=== PATIENT | male | born 1970 | race Caucasian/White ===

== ENCOUNTER 2016-03-22 12:48 | Emergency (ER) | payer OTHER ==
[~2016-03-22] VITALS: Ht 188 cm; Wt 70.3 kg
--- NOTE | 2016-03-22 13:53 | ED CARDIAC/CP/PALPITATIONS ---
History of Present Illness General Chief Complaint: Neck/Upper Back Pain/Injury Stated Complaint: UPPER BACK AND LFT CP SINCE YESTERDAY AM Source: patient, old records Exam Limitations: no limitations Vital Signs & Intake/Output Vital Signs & Intake/Output Vital Signs Date Time Temp Pulse Resp B/P Pulse O2 O2 Flow FiO2 Ox Delivery Rate 03/22 1503 96.6 62 18 118/70 96 Room Air 03/22 1252 97.8 103 16 118/82 97 Room Air Allergies Coded Allergies: venom-honey bee (Severe, ANAPHYLAXIS 03/22/16) Reconcile Medications Cyclobenzaprine HCl 5 MG TABLET 1 TAB PO TIDPRN PRN PAIN Oxycodone HCl/Acetaminophen (Percocet 5-325 MG Tablet) 5 MG-325 MG TABLET 1 TAB PO TID PRN PAIN Triage Note: PT STATES HE IS HAVING PAIN LEFT RIBS INTO BACK PT STATES PAIN INCREASED WITH MOVEMENT. PT REPORTS HE COULDN'T GET OOB YESTERDAY MORNING. PT HAS NOT TAKEN ANYTHING FOR THE PAIN. Triage Nurses Notes Reviewed? yes Onset: Abrupt Duration: day(s): (2), constant Timing: recent history Quality/Severity: moderate, aching Location: shoulder, back Radiation: back Activities at Onset: AT WORK Modifying Factors: Improves With: rest. Worsens With: movement, palpation. Associated Symptoms: DENIES HPI: 45-year-old male with history of asthma active cigar smoker presents emergency room complaining of pain over the anterior chest that is radiating around into his left upper back for the past 2 days. 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 He denies any known injury or trauma however states the pain is worse with change in position palpation. He has not taken anything for his symptoms he denies any abdominal pain nausea vomiting or diarrhea. No palpitations dizziness or lightheadedness. Denies history of similar symptoms in the past. No hemoptysis the pain is not worse with inspiration. There are no other modifying factors or associated symptoms otherwise (CEZAR KWAN,MASOUD) Past History Travel History Traveled to [place] past 21 day No Medical History Any Pertinent Medical History? none Surgical History Surgical History: non-contributory Psychosocial History What is your primary language Thai Tobacco Use: Current Not Daily Daily Tobacco Use Amount/Type: =< 4 Cigarettes daily ETOH Use: occasional use Illicit Drug Use: denies illicit drug use Family History Hx Contributory? No (MASOUD HEARD) Review of Systems Review of Systems Constitutional: Reports: see HPI. All Other Systems: Reviewed and Negative Comments Review of systems: See HPI, All other systems negative. Constitutional, no chills no fever, no malaise HEENT: No visual changes no sore throat no congestion, Cardiovascular: chest pain , no palpitation , no orthopnea no ankle swelling Skin, no jaundice no rashes, no change in skin Respiratory: No dyspnea no cough no sputum no hemoptysis GI: No nausea no vomiting, : No dysuria Muscle skeletal: No joint pain, no back pain, no neck pain, Neurologic: No numbness no headache Psych: No stress Heme/endocrine: No bruising no bleeding Immunology: No lymphadenopathy (MASOUD HEARD) Physical Exam Physical Exam General Appearance: well developed/nourished, alert, awake Cardiovascular: regular rate/rhythm Comments: Well-developed well-nourished person in no acute distress HEENT: Normal EENT exam; PERRL, EOMI, HEAD is atraumatic. moist mucous membranes. Neck: Supple, no lymphadenopathy, normal range of motion Back: Nontender, no CVA tenderness. Full range of motion Cardiovascular: Regular rate and rhythms no murmurs rubs or gallops Respiratory: Chest tender to palpation over the left anterior chest wall, left axilla and left upper back.There were no bony deformities, no asymmetry. No respiratory distress. Patient speaking in full complete sentences. Breath sounds clear to auscultation bilaterally: NO W/R/R Abdomen: Soft, nontender nondistended Extremity: No edema, full range of motion of extremities, pain in the chest is reproducible with range of motion of the left shoulder normal and equal pulses bilaterally, 5 out of 5 strength noted to bilateral upper and lower extremities Neuro: Alert oriented x3, motor sensory normal, There were no obvious focal neurologic abnormalities. Skin: No appreciable rash on exposed skin, skin is warm and dry. There is no rash to the chest wall no vesicles no erythema Psych: Mood and affect is normal, memory and judgment is normal. Core Measures ACS in differential dx? Yes Severe Sepsis Present: No Septic Shock Present: No (MASOUD HEARD) Progress Differential Diagnosis: AMI, costochondritis, musculoskeletal pain, myocarditis, pericarditis, pneumonia, pneumothorax, pulmonary embolism, rib fracture, unstable angina Plan of Care: Orders Procedure Date/time Status TROPONIN LEVEL 03/22 135 Complete COMPREHENSIVE METABOLIC PANEL 03/22 1358 Complete CBC WITHOUT DIFFERENTIAL 03/22 1358 Complete EKG 03/22 135 Active Laboratory Tests 03/22/16 1400: Anion Gap 11, Estimated GFR > 60, BUN/Creatinine Ratio 13.0, Glucose 82, Calcium 9.7, Total Bilirubin 0.5, AST 16 L, ALT 22, Alkaline Phosphatase 70, Troponin I < 0.01, Total Protein 7.0, Albumin 4.2, Globulin 2.8, Albumin/Globulin Ratio 1.5 , CBC w Diff NO MAN DIFF REQ, RBC 5.93, MCV 87.9, MCH 30.1, RDW 14.0, MPV 8.0, Gran % 75.5 H, Lymphocytes % 16.8 L, Monocytes % 5.3, Eosinophils % 1.4, Basophils % 1.0, Absolute Granulocytes 11.3 H, Absolute Lymphocytes 2.5, Absolute Monocytes 0.8 H, Absolute Eosinophils 0.2, Absolute Basophils 0.1, PUBS MCHC 34.2 Patient medication with tramadol at his request labs ordered x-ray ordered Patient reports pain persists I discussed with the patient his x-ray findings CAT scan ordered. Percocet [address] REVIEWED WITH DR MARTINS- discussed with patient his CAT scan results need for supportive care. The patient reports his symptoms have improved with the Percocet I advised need for rest smoking cessation was discussed with the patient prescription for Percocet and Flexeril were provided. I discussed with the patient at length all of their results, need for close follow up with their primary care physician. This week. I answered all of their questions, they feel comfortable with the plan and follow-up care. I discussed the medications that they will receive with the patient. I gave them signs and symptoms that could indicate an adverse reaction. I have advised them to limit their activities until they can see how they respond to the medication. (CEZAR KWAN,MASOUD) Diagnostic Imaging: Viewed by Me: Radiology Read, CT Scan. Discussed w/RAD: Radiology Read, CT Scan. Radiology Impression: PATIENT: COTY PAUL PRESENT AGE: 45 PATIENT ACCOUNT NO: [id number] : 71 LOCATION: [facility] ORDERING PHYSICIAN: MASOUD KWAN SERVICE DATE: 03/22/16 EXAM TYPE: CAT - CT CHEST WO IV CONTRAST EXAMINATION: CT CHEST WITHOUT CONTRAST CLINICAL INFORMATION: Left rib pain. Question presence of pneumothorax or bulla on chest radiograph. COMPARISON: Radiographs of the chest/ribs from 03/22/2016 TECHNIQUE: Multidetector volumetric CT imaging of the chest was done. Axial MIP volume rendering provided. Sagittal and coronal reformatted images were obtained. DLP: 250.82 mGy-cm FINDINGS: LUNGS AND PLEURA: Trachea and central airways are widely patent and normal in caliber. Linear strand of mucus is seen in the lumen of the distal trachea and a small amount of mucus is present along the posterior wall of the right mainstem bronchus. There is centrilobular and paraseptal emphysema. Bullous emphysematous changes are severe at the lung apices and along the posterior aspect of the right lower lobe. No pneumothorax or pleural effusion. There are a few scattered linear and bandlike opacities of atelectasis and/or focal fibrosis within the right middle lobe, inferior lingula and lower lobes. MEDIASTINUM: Cardiac chambers, pulmonary arteries and thoracic aorta are normal in caliber. No pericardial effusion. The thyroid gland and esophagus are unremarkable. LYMPHATICS: No pathologic sized axillary, hilar or mediastinal lymph nodes. UPPER ABDOMEN: There is diffuse cortical atrophy of the right kidney. Otherwise, the examined upper abdomen is unremarkable. OSSEOUS STRUCTURES: Thoracic vertebra have normal density, height and alignment. Ribs are unremarkable. No evidence of an acute, displaced rib fracture. IMPRESSION: Pulmonary emphysema without pneumothorax. The bullous emphysematous changes are severe at the lung apices and along the posterior aspect of the right lower lobe. DICTATED BY: CARINA ELLISON MD DATE/TIME DICTATED:03/22/161558 [employer] DEAN:JUAN DATE/TIME TRANSCRIBED:03/22/161558 CONFIDENTIAL, DO NOT COPY WITHOUT APPROPRIATE AUTHORIZATION. <Electronically signed in Other Vendor System> SIGNED BY: CARINA ELLISON MD 03/22/16 1613, PATIENT: COTY PAUL PRESENT AGE: 45 PATIENT ACCOUNT NO: [id number] : 71 LOCATION: [facility] ORDERING PHYSICIAN: MASOUD KWAN SERVICE DATE: 03/22/16 EXAM TYPE: CAT - CT CHEST WO IV CONTRAST EXAMINATION : CT CHEST WITHOUT CONTRAST CLINICAL INFORMATION: Left rib pain. Question presence of pneumothorax or bulla on chest radiograph. COMPARISON: Radiographs of the chest/ribs from 03/22/2016 TECHNIQUE: Multidetector volumetric CT imaging of the chest was done. Axial MIP volume rendering provided. Sagittal and coronal reformatted images were obtained. DLP: 250.82 mGy-cm FINDINGS: LUNGS AND PLEURA: Trachea and central airways are widely patent and normal in caliber. Linear strand of mucus is seen in the lumen of the distal trachea and a small amount of mucus is present along the posterior wall of the right mainstem bronchus. There is centrilobular and paraseptal emphysema. Bullous emphysematous changes are severe at the lung apices and along the posterior aspect of the right lower lobe. No pneumothorax or pleural effusion. There are a few scattered linear and bandlike opacities of atelectasis and/or focal fibrosis within the right middle lobe, inferior lingula and lower lobes. MEDIASTINUM: Cardiac chambers, pulmonary arteries and thoracic aorta are normal in caliber. No pericardial effusion. The thyroid gland and esophagus are unremarkable. LYMPHATICS: No pathologic sized axillary, hilar or mediastinal lymph nodes. UPPER ABDOMEN: There is diffuse cortical atrophy of the right kidney. Otherwise, the examined upper abdomen is unremarkable. OSSEOUS STRUCTURES: Thoracic vertebra have normal density, height and alignment. Ribs are unremarkable. No evidence of an acute, displaced rib fracture. IMPRESSION: Pulmonary emphysema without pneumothorax. The bullous emphysematous changes are severe at the lung apices and along the posterior aspect of the right lower lobe. DICTATED BY: CARINA ELLISON MD DATE/TIME DICTATED:03/22/161558 [employer] DEAN:JUAN DATE/TIME TRANSCRIBED:1558 CONFIDENTIAL, DO NOT COPY WITHOUT APPROPRIATE AUTHORIZATION. < Electronically signed in Other Vendor System> SIGNED BY: CARINA ELLISON MD 03/22/16 1613 Initial ED EKG: NORMAL SINUS AT 70, NO ACUTE st SEGMENT CHANGES ARE NORMAL AXIS (MASOUD HEARD) Departure Departure Time of Disposition: 1622 Disposition: HOME OR SELF CARE Condition: Stable Clinical Impression Primary Impression: Lung bullae Referrals: ALYSHA MULLER MD (PCP/Family) Additional Instructions: Follow-up with your primary care physician this week. Percocet and Flexeril as directed. Use caution as these vacations will make you drowsy no driving drinking alcohol or operating machinery while taking. Heating pad as discussed stop smoking These prescriptions were sent to the [facility] Departure Forms: Customer Survey General Discharge Information Prescriptions: Current Visit Scripts Oxycodone HCl/Acetaminophen (Percocet 5-325 MG Tablet) 1 TAB PO TID PRN PAIN #12 TAB Cyclobenzaprine HCl 1 TAB PO TIDPRN PRN PAIN #12 TAB (MASOUD HEARD) PA/MARINE MAMMAL TRAINER Co-Sign Statement Statement: ED Attending supervision documentation- [] I saw and evaluated the patient. I have also reviewed all the pertinent lab results and diagnostic results. I agree with the findings and the plan of care as documented in the PA's/MARINE MAMMAL TRAINER's documentation. [X] I have reviewed the ED Record and agree with the PA's/MARINE MAMMAL TRAINER's documentation. [] Additions or exceptions (if any) to the PAs/MARINE MAMMAL TRAINER's note and plan are summarized below: [] (ELIEZER YOUNG,MADELYN) Critical Care Note Critical Care Note Critical Care Time: non-applicable (MASOUD HEARD)
[2016-03-22 14:13] LABS: ABSOLUTE BASOPHIL COUNT 0.1 /CUMM (0.0-0.2); ABSOLUTE EOSINOPHIL COUNT 0.2 /CUMM (0.0-0.7); ABSOLUTE GRANULOCYTE CT 11.3 /CUMM (1.4-6.5); ABSOLUTE LYMPH COUNT 2.5 /CUMM (1.2-3.4); ABSOLUTE MONOCYTE COUNT 0.8 /CUMM (0.10-0.60); EOSINOPHIL % 1.4 % (0-5); GRANULOCYTE % 75.5 % (42.2-75.2); HEMATOCRIT 52.1 % (42-52); MEAN CORPUSCULAR HGB 30.1 PG (27.0-31.0); MEAN CORPUSCULAR HGB CONC 34.2 G/DL (33.0-37.0); MEAN CORPUSCULAR VOLUME 87.9 FL (80.0-94.0); PLATELET COUNT 221 /CUMM (130-400); RED BLOOD CELL CT 5.93 /CUMM (4.70-6.10); WHITE BLOOD CELL COUNT 14.9 /CUMM (4.8-10.8)
[2016-03-22 15:03] VITALS: BP 118/70
--- NOTE | 2016-03-22 15:12 | RADIOLOGY REPORT ---
EXAMINATION: XR RIBS, LEFT CLINICAL INFORMATION: Left rib pain. COMPARISON: None. TECHNIQUE: Single view chest with 3 additional views left ribs. FINDINGS: Large bullae are noted at the apices, especially on the left. I doubt that this represents a loculated pneumothorax. No air is seen laterally or inferiorly. There are some patchy densities present at the lung bases which could represent infiltrate or atelectasis. No rib fracture or rib lesion is seen. IMPRESSION: Large apical bullae, left greater than right. A loculated pneumothorax is less likely. CT could distinguish between these 2 diagnoses although I believe bullae are more likely.
--- NOTE | 2016-03-22 16:13 | CT SCAN REPORT ---
EXAMINATION: CT CHEST WITHOUT CONTRAST CLINICAL INFORMATION: Left rib pain. Question presence of pneumothorax or bulla on chest radiograph. COMPARISON: Radiographs of the chest/ribs from 03/22/2016 TECHNIQUE: Multidetector volumetric CT imaging of the chest was done. Axial MIP volume rendering provided. Sagittal and coronal reformatted images were obtained. DLP: 250.82 mGy-cm FINDINGS: LUNGS AND PLEURA: Trachea and central airways are widely patent and normal in caliber. Linear strand of mucus is seen in the lumen of the distal trachea and a small amount of mucus is present along the posterior wall of the right mainstem bronchus. There is centrilobular and paraseptal emphysema. Bullous emphysematous changes are severe at the lung apices and along the posterior aspect of the right lower lobe. No pneumothorax or pleural effusion. There are a few scattered linear and bandlike opacities of atelectasis and/or focal fibrosis within the right middle lobe, inferior lingula and lower lobes. MEDIASTINUM: Cardiac chambers, pulmonary arteries and thoracic aorta are normal in caliber. No pericardial effusion. The thyroid gland and esophagus are unremarkable. LYMPHATICS: No pathologic sized axillary, hilar or mediastinal lymph nodes. UPPER ABDOMEN: There is diffuse cortical atrophy of the right kidney. Otherwise, the examined upper abdomen is unremarkable. OSSEOUS STRUCTURES: Thoracic vertebra have normal density, height and alignment. Ribs are unremarkable. No evidence of an acute, displaced rib fracture. IMPRESSION: Pulmonary emphysema without pneumothorax. The bullous emphysematous changes are severe at the lung apices and along the posterior aspect of the right lower lobe.
[2016-03-22] MEDS ORDERED: CYCLOBENZAPRINE5 M2 PO (16:25)
[2016-03-22] MEDS ORDERED: PERCOCET 5-3251 EACH PO (16:25)
== END 2016-03-22 16:35 ==
LOC: ERH 12:48
PROVIDERS: Physician Assistant Medical
DX: J43.9 Emphysema, unspecified (principal); Z72.0 Tobacco use
CPT/HCPCS: 71100-LT; 93005; 93010